=== PATIENT | female | born 1940 | race African-American/Black ===

== ENCOUNTER 2021-01-15 22:09 | Emergency (ER) | payer MEDICARE, OTHER ==
[~2021-01-15] VITALS: Ht 157.5 cm; Wt 58.0 kg
[2021-01-15] MEDS ORDERED: HYDROcodon/APAP 7.5/325MG ORAL 15 ML SOLUTION PO ONE (23:00)
[2021-01-15 23:09] VITALS: BP 131/82
--- NOTE | 2021-01-15 23:09 | RAD ---
Exam: Right shoulder 3 views INDICATION: Pain, status post fall TECHNIQUE: Frontal view of the right shoulder with internal and external rotation and transscapular Y views Comparisons: None FINDINGS: Bone mineralization is normal. No acute or healed fractures. Joint spaces are well-maintained. Soft t issues are unremarkable. IMPRESSION: No acute osseous abnormality. Electronically signed by: Diego Monique MD (01/15/2021 11:06 PM) [facility]
--- NOTE | 2021-01-15 23:20 | PHYS DOC ---
General Adult EDM: Chief Complaint: SHOULDER INJURY HPI: HPI: Patient is a 80 year old [f__sex] who presents with [] Review of Systems: Review of Systems: Constitutional: Denies fever or chills. [] Eyes: Denies change in visual acuity. [] HENT: Denies nasal congestion or sore throat. [] Respiratory: Denies cough or shortness of breath. [] Cardiovascular: Denies chest pain or edema. [] GI: Denies abdominal pain, nausea, vomiting, bloody stools or diarrhea. [] : Denies dysuria. [] Musculoskeletal: Denies back pain or joint pain. [] Integument: Denies rash. [] Neurologic: Denies headache, focal weakness or sensory changes. [] Endocrine: Denies polyuria or polydipsia. [] Lymphatic: Denies swollen glands. [] Psychiatric: Denies depression or anxiety. [] Heart Score: Risk Factors: Risk Factors: DM, Current or recent (<one month) smoker, HTN, HLP, family history of CAD, obesity. Risk Scores: Score 0 - 3: 2.5% MACE over next 6 weeks - Discharge Home Score 4 - 6: 20.3% MACE over next 6 weeks - Admit for Clinical Observation Score 7 - 10: 72.7% MACE over next 6 weeks - Early Invasive Strategies Current Medications: Current Medications Medications (Trade) Dose Ordered Sig/Susan Start Time Stop Time Status Last Admin Dose Admin Acetaminophen/ Hydrocodone Bitart (Lortab 7.5-325/ 15ml Oral Solution) 7.5 ml 1X ONCE 01/15/21 23:00 01/15/21 23:01 DC 01/15/21 22:59 7.5 ML Allergies: Allergies: Allergies Coded Allergies Type Severity Reaction Last Updated Verified No Known Drug Allergies 01/15/21 No Physical Exam: PE: Constitutional: Well developed, well nourished, no acute distress, non-toxic appearance. [] HENT: Normocephalic, atraumatic, bilateral external ears normal, oropharynx moist, no oral exudates, nose normal. [] Eyes: PERRLA, EOMI, conjunctiva normal, no discharge. [] Neck: Normal range of motion, no tenderness, supple, no stridor. [] Cardiovascular:Heart rate regular rhythm, no murmur [] Lungs & Thorax: Bilateral breath sounds clear to auscultation [] Abdomen: Bowel sounds normal, soft, no tenderness, no masses, no pulsatile masses. [] Skin: Warm, dry, no erythema, no rash. [] Back: No tenderness, no CVA tenderness. [] Extremities: No tenderness, no cyanosis, no clubbing, ROM intact, no edema. [] Neurologic: Alert and oriented X 3, normal motor function, normal sensory function, no focal deficits noted. [] Psychologic: Affect normal, judgement normal, mood normal. [] EKG: EKG: [] Radiology/Procedures: Radiology/Procedures: PROCEDURE: SHOULDER 2+V RIGHT Exam: Right shoulder 3 views INDICATION: Pain, status post fall TECHNIQUE: Frontal view of the right shoulder with internal and external rotation and transscapular Y views Comparisons: None FINDINGS: Bone mineralization is normal. No acute or healed fractures. Joint spaces are well-maintained. Soft tissues are unremarkable. IMPRESSION: No acute osseous abnormality. Electronically signed by: Diego Monique MD (01/15/2021 11:06 PM) [facility] Course & Med Decision Making: Course & Med Decision Making Pertinent Labs and Imaging studies reviewed. (See chart for details) [] Dragon Disclaimer: Dragon Disclaimer: This electronic medical record was generated, in whole or in part, using a voice recognition dictation system. Departure Departure Impression: Primary Impression: Shoulder pain, right Qualified Codes: M25.511 - Pain in right shoulder Disposition: 01 HOME / SELF CARE / HOMELESS Condition: STABLE Referrals: UNKNOWN PCP NAME (PCP) DAVON RIVERA MD Patient Instructions: Shoulder Immobilizer, Shoulder Pain, [id number] Additional Instructions: ICE area 20 min on then leave off next 20 mins. Repeat several times daily as needed for pain or discomfort. Increase fluid hydration. May benefit from increasing fiber in your diet to help prevent constipation while taking pain medication. A common over the counter fiber drink is Metamucil. You may also ask your pharmacist regarding any liquid stool softeners. Scripts Hydrocodone Bit/Acetaminophen (HYDROCODONE-APAP 7.5-325/15 SOLN ) 15 Ml Solution 7.5 ML PO PRN Q4-6HRS PRN for pain MDD 90 Milliliter(s), #200 ML 0 Refills Prov: ROYAL CHIRINOS DO 01/15/21 ROYAL CHIRINOS DO January 15, 2021 23:20
[2021-01-15] MEDS ORDERED: HYDR15SO6 PO (23:38)
== END 2021-01-15 23:40 | disposition home or self-care (01) ==
LOC: ER 22:09
DX: M25.511 Pain in right shoulder (principal); G89.11 Acute pain due to trauma; W18.39XA Other fall on same level, initial encounter; Y93.89 Activity, other specified; Y92.89 Other specified places as the place of occurrence of the external cause; Y99.8 Other external cause status
CPT/HCPCS: 29105; 29505; 73030; 99284